=== PATIENT | female | born 1965 | race Caucasian/White ===

== ENCOUNTER 2019-03-04 09:16 | Emergency (ER) | payer OTHER ==
[~2019-03-04] VITALS: Ht 157.5 cm; Wt 94.5 kg
[2019-03-04 09:19] VITALS: BP 139/79
--- NOTE | 2019-03-04 09:26 | NUR ---
pt amb to bed 8
--- NOTE | 2019-03-04 09:35 | NUR ---
C/O 10/10 TIGHT/PRESSURE EPIGASTRIC PAIN & NAUSEA STARTING APPROX. 5 AM TODAY. PT DENIES V/D/FEVER. PT SKIN IS DRY/WARM, O2 SAT 98% RA, BREATHING IS UNLABORED, PT RHYTHM IS SINUS BRADYCARDIA 55 BPM. PT IS ALERT AND IS ANSWERING QUESTIONS APPROPRIALTELY. PT PLACED IN GOWN AND ON BUSINESS ACCOUNT LEADER AT BEDSIDE. PATIENT POSITIONED FOR COMFORT, HOB ELEVATED, BEDRAILS UP X1, BED IN LOW POSITION.
[2019-03-04] MEDS ORDERED: NACL 0.9% 1,000 ML IV ONE (09:58)
[2019-03-04] MEDS ORDERED: NACL 0.9% 1,000 ML IV SCH (09:58)
[2019-03-04] MEDS ORDERED: PROMETHAZINE 25 MG/ML VIAL IM ONE (10:00)
[2019-03-04] MEDS ORDERED: GLYCOPYRROLATE 0.2 MG/ML VIAL IV ONE (10:00)
[2019-03-04] MEDS ORDERED: MORPHINE SULFATE 4 MG/ML SYR IVP ONE (10:00)
[2019-03-04] MEDS ORDERED: KETOROLAC 30 MG/ML VIAL IVP ONE (10:00)
--- NOTE | 2019-03-04 10:15 | NUR ---
[facility]
[2019-03-04 10:17] LABS: BASOPHILS % (AUTO) 0.4 % (0.0-2.0); EOSINOPHILS # (AUTO) 0.1 K/uL (0-0.4); EOSINOPHILS % (AUTO) 0.8 % (0.0-4.0); HEMATOCRIT 38.7 % (36-48); LYMPHOCYTES # (AUTO) 2.1 K/uL (2.5-16.5); LYMPHOCYTES % (AUTO) 26.3 % (20.5-51.1); MEAN CORPUSCULAR HEMOGLOBIN 31 pg (27-31); MEAN CORPUSCULAR HGB CONC 34 g/dL (33-37); MEAN CORPUSCULAR VOLUME 93.4 fL (80-94); MONOCYTES # (AUTO) 0.5 K/uL (0.8-1.0); MONOCYTES % (AUTO) 5.8 % (1.7-9.3); NEUTROPHILS # (AUTO) 5.3 K/uL (1.8-7.7); NEUTROPHILS % (AUTO) 66.7 % (42.2-75.2); PLATELET COUNT (AUTO) 262 K/uL (140-450); RED BLOOD CELL COUNT(AUTO) 4.14 MIL/uL (4.20-5.40); RED CELL DISTRIBUTION WIDTH 13.4 % (11.6-13.7)
[2019-03-04 10:24] LABS: ANION GAP 13.1 (8-16); CARBON DIOXIDE 25.9 mmol/L (21-32); CREATININE 0.7 mg/dL (0.6-1.3)
--- NOTE | 2019-03-04 10:25 | NUR ---
PT RETURNED FROM CT
[2019-03-04 10:30] LABS: ALBUMIN 3.8 g/dL (3.4-5.0); TOTAL BILIRUBIN 0.4 mg/dL (0.0-1.0)
[2019-03-04 10:54] LABS: APPEARANCE,URINE CLEAR (CLEAR); BILIRUBIN,URINE NEGATIVE (NEGATIVE); BLOOD, URINE TRACE-I (NEGATIVE); COLOR,URINE YELLOW (YELLOW); LEUKOCYTE ESTERASE ,URINE NEGATIVE (NEGATIVE); NITRITE, URINE NEGATIVE (NEGATIVE); PH,URINE 7.5 (5.0-9.0); UGLUCOSE NEGATIVE (NEGATIVE)
--- NOTE | 2019-03-04 11:00 | NUR ---
PT AMB TO RESTROOM WITH
[2019-03-04 11:01] LABS: RBC,URINE 0-5 /HPF (0-5); WBC,URINE NONE SEEN /HPF (0-5)
--- NOTE | 2019-03-04 11:43 | NUR ---
Oxygen applied at 2 L per minute via NC due to o2 saturation at 90%. Attempts made to sit pt up to bring up 02, but when pt falls asleep it continues to lower to 90%. 02 saturation 98% by pulse oximetry with NC at this time.
--- NOTE | 2019-03-04 11:50 | NUR ---
PT ASLEEP IN BED AT THIS TIME, AT BEDSIDE
[2019-03-04] MEDS ORDERED: NALOXONE 0.4 MG/ML VIAL IVP ONE (12:15)
[2019-03-04 12:50] VITALS: BP 109/55
--- NOTE | 2019-03-04 12:51 | NUR ---
Patient discharged with v/s stable. Written and verbal after care instructions given and explained. Patient alert, oriented and verbalized understanding of instructions. Carried with steady gait. All questions addressed prior to discharge. ID band removed. Patient advised to follow up with PMD. Rx of LEVSIN & TRAMADOL given. Patient educated on indication of medication including possible reaction and side effects. Opportunity to ask questions provided and answered.
== END 2019-03-04 12:51 | disposition home or self-care (01) ==
LOC: MED 09:16
DX: K80.20 Calculus of gallbladder without cholecystitis without obstruction (principal); I10 Essential (primary) hypertension; F41.9 Anxiety disorder, unspecified; E11.9 Type 2 diabetes mellitus without complications; E66.9 Obesity, unspecified; Z68.38 Body mass index [BMI] 38.0-38.9, adult
CPT/HCPCS: 36415; 74176; 76705; 80053; 81001; 82150; 82977; 83690; 85025; 96372; 96374; 96375; 99284; J1885; J2270; J2550; J3490; Q0092

== ENCOUNTER 2024-04-01 10:55 | Emergency (ER) | payer OTHER ==
[~2024-04-01] VITALS: Ht 154.9 cm; Wt 95.3 kg
[2024-04-01 11:00] VITALS: BP 138/69; PULSE 68; RESP 18; TEMP 98.1; O2SAT 99
[2024-04-01] MEDS ORDERED: PROCHLORPERAZINE 10 MG/2 ML VIAL ONE (12:17)
[2024-04-01] MEDS: PROCHLORPERAZINE 10 MG/2 ML VIAL IVP ONE (12:28)
[2024-04-01] MEDS: KETOROLAC 30 MG/ML VIAL IVP ONE (12:31)
[2024-04-01] MEDS ORDERED: TRAM50TA3 PO (13:42)
[2024-04-01 15:00] VITALS: BP 135/55; PULSE 58; RESP 15; TEMP 98.1; O2SAT 97
== END 2024-04-01 14:00 | disposition home or self-care (01) ==
LOC: MED 10:55
DX: G44.209 Tension-type headache, unspecified, not intractable (principal); F41.9 Anxiety disorder, unspecified; E11.9 Type 2 diabetes mellitus without complications; I10 Essential (primary) hypertension; E78.5 Hyperlipidemia, unspecified; F32.A Depression, unspecified; Z79.899 Other long term (current) drug therapy
CPT/HCPCS: 70450; 96374; 96375; 99285; J0780; J1885

== ENCOUNTER 2024-04-01 15:25 | Emergency (ER) | payer OTHER ==
[~2024-04-01] VITALS: Ht 154.9 cm; Wt 95.3 kg
[~2024-04-01 15:25] MED LIST: TRAM50TA3 PO
[2024-04-01 16:00] VITALS: BP 150/80; PULSE 76; RESP 18; TEMP 97.3; O2SAT 97
[2024-04-01] MEDS: diphenhydrAMINE 50 MG/ML VIAL IM ONE (17:03)
[2024-04-01 17:58] VITALS: BP 141/62; PULSE 70; RESP 17; TEMP 97.3; O2SAT 97
== END 2024-04-01 17:57 | disposition home or self-care (01) ==
LOC: MED 15:25
DX: G25.71 Drug induced akathisia (principal); T43.3X5A Adverse effect of phenothiazine antipsychotics and neuroleptics, initial encounter; F41.9 Anxiety disorder, unspecified; E11.9 Type 2 diabetes mellitus without complications; I10 Essential (primary) hypertension; F32.A Depression, unspecified; Z79.899 Other long term (current) drug therapy; Y92.89 Other specified places as the place of occurrence of the external cause
CPT/HCPCS: 96372; 99283; J1200